=== PATIENT | female | born 1990 | race Caucasian/White ===

== ENCOUNTER 2018-04-29 18:30 | Emergency (ER) | payer OTHER ==
[2018-04-29 18:38] VITALS: BP 125/92
[2018-04-29] MEDS ORDERED: SULFAMETHOX/TMP 800/160 MG 1 TAB PO ONE (18:53)
--- NOTE | 2018-04-29 18:53 | EDPHY ---
H & P Stated Complaint: abcess to r lower abdomen since this morning Time Seen by Provider: 04/29/18 18:45 HPI/ROS: CHIEF COMPLAINT: Abscess HISTORY OF PRESENT ILLNESS: The patient is a 27-year-old female with a small abscess to her abdomen. She noticed yesterday. It is slightly tender and erythematous. She denies any needle use. She has not had previous abscesses. No abdominal pain or vomiting. No fever. Severity: None Modifying factors: None REVIEW OF SYSTEMS: Constitutional: denies: chills, fever, recent illness, recent injury EENTM: denies: blurred vision, double vision, nose congestion Respiratory: denies: cough, shortness of breath Cardiac: denies: chest pain, irregular heart rate, lightheadedness, palpitations Gastrointestinal/Abdominal: denies: abdominal pain, diarrhea, nausea, vomiting, blood streaked stools Genitourinary: denies: dysuria, frequency, hematuria, pain Musculoskeletal: denies: joint pain, muscle pain Skin: See HPI Neurological: denies: headache, numbness, paresthesia, tingling, dizziness, weakness Hematologic/Lymphatic: denies: blood clots, easy bleeding, easy bruising Immunologic/allergic: denies: HIV/AIDS, transplant 10 systems reviewed and negative except as noted EXAM: GENERAL: Well-appearing, well-nourished and in no acute distress. HEAD: Atraumatic, normocephalic. EYES: Pupils equal round and reactive to light, extraocular movements intact, sclera anicteric, conjunctiva are normal. ENT: TMs normal, nares patent, oropharynx clear without exudates. Moist mucous membranes. NECK: Normal range of motion, supple without lymphadenopathy or JVD. LUNGS: Breath sounds clear to auscultation bilaterally and equal. No wheezes rales or rhonchi. HEART: Regular rate and rhythm without murmurs, rubs or gallops. ABDOMEN: Soft, nontender, normoactive bowel sounds. No guarding, no rebound. No masses appreciated. BACK: No CVA tenderness, no spinal tenderness, step-offs or deformities EXTREMITIES: Normal range of motion, no pitting or edema. No clubbing or cyanosis. NEUROLOGICAL: Cranial nerves II through XII grossly intact. Normal speech, normal gait. 5/5 strength, normal movement in all extremities, normal sensation , normal reflexes PSYCH: Normal mood, normal affect. SKIN: Small 1 x 2 cm abscess to right lower abdomen just under pannus, mild surrounding erythema. Minimally tender Source: Patient Exam Limitations: No limitations - Personal History Current Tetanus Diphtheria and Acellular Pertussis (TDAP): Yes - Medical/Surgical History Hx Asthma: No Hx Chronic Respiratory Disease: No Hx Diabetes: No Hx Cardiac Disease: No Hx Renal Disease: No Hx Cirrhosis: No Hx Alcoholism: No Hx HIV/AIDS: No Hx Splenectomy or Spleen Trauma: No Other PMH: denies - Family History Significant Family History: No pertinent family hx - Social History Smoking Status: Former smoker Alcohol Use: Sober Drug Use: None Constitutional: Initial Vital Signs Temperature (C) 36.3 C 04/29/18 18:36 Heart Rate 92 04/29/18 18:36 Respiratory Rate 16 04/29/18 18:36 Blood Pressure 125/92 H 04/29/18 18:36 O2 Sat (%) 96 04/29/18 18:36 O2 Delivery Mode Room Air Allergies/Adverse Reactions: No Known Allergies Allergy (Unverified 04/29/18 18:43) Home Medications: Medication Instructions Recorded Naltrexone 04/29/18 Sulfamethox/Tmp 800/160 mg 1 tab PO BID #14 tab 04/29/18 [Bactrim Ds] Wellbutrin 100mg (*) 04/29/18 Medical Decision Making Procedures: Procedure: Abscess drainage. The patient's abscess was located on the abdomen. I obtained verbal consent from the patient to drain the abscess who was informed about the possibility of bleeding and pain. The abscess was incised with 11 blade and 2-3 cc of purulent drainage was expressed. I irrigated the wound and placed some packing. The patient tolerated the procedure well. The procedure was performed by myself. ED Course/Re-evaluation: Patient tolerated the procedure. I left a small amount of packing inside that I informed her will fall out over the next day or 2. I will start her on antibiotics as well. She understands and agrees with this plan. We discussed indications for returning. Differential Diagnosis: Partial list of the Differential diagnosis considered include but were not limited to; abscess, insect bite, cellulitis and although unlikely based on the history and physical exam, I also considered fistula, hernia. I discussed these differential diagnoses and the plan with the patient as well as the usual and expected course. The patient understands that the diagnosis is provisional and that in medicine we are not always correct and that further workup is often warranted. Usual and customary warnings were given. All of the patient's questions were answered. The patient was instructed to return to the emergency department should the symptoms at all worsen or return, otherwise to followup with the physician as we discussed. - Data Points Medications Given: Discontinued Medications Trimethoprim/Sulfamethoxazole (Bactrim Ds) 1 ea PO EDNOW ONE PRN Reason: Protocol Stop: 04/29/18 18:54 Last Admin: 04/29/18 19:05 Dose: 1 ea Departure - Departure Disposition: Home, Routine, Self-Care Clinical Impression: Abscess Condition: Fair Instructions: Abscess (ED) Referrals: NONE *PRIMARY CARE P,. [Primary Care Provider] - As per Instructions John Harris MD [[facility] [place]] - As per Instructions Prescriptions: Sulfamethox/Tmp 800/160 mg [Bactrim Ds] 1 tab PO BID #14 tab
== END 2018-04-29 19:30 | disposition home or self-care (01) ==
LOC: CED 18:30
PROC: 0H97XZZ Drainage of Abdomen Skin, External Approach (ICD-10-PCS; principal; 2018-04-29)
DX: L02.211 Cutaneous abscess of abdominal wall (principal)

== ENCOUNTER 2018-05-02 12:12 | Emergency (ER) | payer OTHER ==
--- NOTE | 2018-05-02 12:50 | EDPHY ---
H & P Time Seen by Provider: 05/02/18 12:38 HPI/ROS: HPI Cough, congestion, fever. 27-year-old female by private vehicle. This patient was seen in our emergency department on April 29 for drainage of a small abscess on the right lower quadrant of her abdomen. She has been taking Bactrim twice daily since that time. She states that the day before this she developed a cough and had some congestion and has had an on and off fever. She reports continued cough and congestion as well as sore throat in the emergency department today. She denies any urinary complaints. ROS: Constitutional: As above, no chills. No weakness. Eyes: No discharge. No changes in vision. ENT: As above. Respiratory: As above. No shortness of breath. Cardiac: No chest pain, no palpitations. Gastrointestinal: No abdominal pain, no vomiting, no diarrhea. Genitourinary: No hematuria. No dysuria or increased frequency with urination. Musculoskeletal: No back pain. No neck pain. No myalgias or arthralgias. Skin: No rashes. As above. Neurological: No headache. No focal weakness or altered sensation. Past medical history: Depression, anxiety, substance abuse, currently in rehab. Social history: Nonsmoker. History of substance abuse. Sober. Here by herself. Physical Exam: General Appearance: Alert, no distress. This patient is responding to questions appropriately and in full sentences. This patient appears well- hydrated and well-nourished. Eyes: Pupils equal and round no pallor or injection. No lid edema, erythema or injection. ENT, Mouth: Mucous membranes are moist. The pharyngeal tissues are unremarkable. No edema or swelling. No asymmetry suggestive of abscess. No erythema or exudates. No cervical, submental, submandibular lymphadenopathy. No stridor on auscultation of her neck. Respiratory: There are no retractions, lungs are clear to auscultation with good air movement bilaterally. Cardiovascular: Regular rate and rhythm. No murmur. Gastrointestinal: Abdomen is soft and nontender, no masses, bowel sounds normal. No focal tenderness at McBurney's point. No Zuniga sign. There is a small, 1 cm healing abscess incision right lower quadrant on her pannus fold. There is no surrounding erythema or edema. No induration or fluctuance. Neurological: Motor sensory function is grossly intact. Cranial nerves are normal. Gait is normal. Skin: Warm and dry, no rashes. Musculoskeletal: Neck is supple and nontender. Extremities are symmetrical. All joints range without pain or impingement. Psychiatric: No agitation. No depression. Database: EKG: Imaging: Chest x-ray PA and lateral; the cardiac mediastinal silhouette is unremarkable. No evidence of infiltrate or pneumothorax. No acute cardiopulmonary disease process noted. Interpreted by me. Procedures: Emergency department course: Triage vital signs reviewed. She is afebrile here. Vital signs are otherwise normal. Her incised and drained abscess on the right lower quadrant of her abdomen does not appear to be a source of her fever. Her fever is likely from her upper respiratory infection. 1:15 p.m., the patient was re-evaluated. Results of her chest x-ray discussed with her. Her presentation is consistent with a viral upper respiratory infection. I feel this is likely the source of her fever. Soft tissue infection, cellulitis unlikely. She feels comfortable going home at this time and I feel she is safe for discharge. Follow-up and return to [facility] department precautions have been reviewed with her. All of her questions were answered. She was discharged from the emergency department in good condition. Differential Diagnosis: The differential diagnosis on this patient includes but is not limited to recent visit for incision and drainage of abdominal abscess, viral upper respiratory infection. Pneumonia, urinary tract infection, cellulitis, serious bacterial infection unlikely. This represents a partial list of diagnoses considered. These considerations are based on history, physical exam, past history, reassessment and diagnostic testing. Smoking Status: Former smoker Constitutional: Initial Vital Signs Temperature (C) 36.6 C 05/02/18 12:22 Heart Rate 96 05/02/18 12:22 Respiratory Rate 18 05/02/18 12:22 Blood Pressure 129/78 H 05/02/18 12:22 O2 Sat (%) 96 05/02/18 12:22 O2 Delivery Mode Room Air Allergies/Adverse Reactions: No Known Allergies Allergy (Unverified 05/02/18 12:22) Home Medications: Medication Instructions Recorded Naltrexone 04/29/18 Sulfamethox/Tmp 800/160 mg 1 tab PO BID #14 tab 04/29/18 [Bactrim Ds] Wellbutrin 100mg (*) 04/29/18 Medical Decision Making - Diagnostics Imaging Results: Imaging Impressions Chest X-Ray 05/02/18 12:40 Impression: Normal. No pneumonia. Departure - Departure Disposition: Home, Routine, Self-Care Clinical Impression: Upper respiratory infection, History of fever Condition: Good Instructions: Upper Respiratory Infection (ED) Additional Instructions: Read and follow provided instructions. Follow-up with your primary care physician on Saturday for re-evaluation. Take Tylenol as directed for fever control. Return to the emergency department for worsening symptoms, worsening cough, difficulty breathing, high fever or other serious concerns. Referrals: NONE *PRIMARY CARE P,. [Primary Care Provider] - As per Instructions
[2018-05-02 13:29] VITALS: BP 98/67
== END 2018-05-02 13:27 | disposition home or self-care (01) ==
LOC: CED 12:12
DX: J06.9 Acute upper respiratory infection, unspecified (principal)
CPT/HCPCS: 71046-PO